=== PATIENT | female | born 1995 | race African-American/Black ===

== ENCOUNTER 2020-12-08 00:05 | Emergency (ER) | payer OTHER, SELFPAY ==
[2020-12-08 00:08] VITALS: BP 128/72; PULSE 74; RESP 18; TEMP 36.1; O2SAT 100
--- NOTE | 2020-12-08 00:21 | ED.UPPEXIN ---
HPI - Extremity Injury (Upper) General Chief Complaint: Extremity Injury, Upper Stated Complaint: swelling for finger nail Time Seen by Provider: 12/08/20 00:11 Source: patient Mode of arrival: ambulatory Limitations: no limitations History of Present Illness HPI narrative: 25-year-old with a history of right middle finger for past few days. Patient's states that she is unable to get the artificial nail out. Was at nails and she was unable to tolerate the pain. complaint: injury to: finger (Right middle finger) Onset (ago): day(s) Other injuries: none Place: home Severity: moderate Relieving factors: none Exacerbating factors: none Related Data Home Medications Medication Instructions Recorded Confirmed No Home Medications 12/08/20 Allergies Allergy/AdvReac Type Severity Reaction Status Date / Time No Known Allergies Allergy Verified 12/08/20 00:10 Review of Systems Review of Systems: All systems reviewed & are unremarkable except as noted in HPI and below Constitutional: Constitutional: Reports no additional constitutional complaints Eyes: Eyes: Reports no additional eye complaints ENT: Reports system reviewed and no additional complaints, except as documented Cardiovascular: Cardiovascular: Reports no additional cardiovascular complaints Respiratory: Respiratory: Reports no additional respiratory complaints Musculoskeletal: Musculoskeletal: Reports as per HPI PMFSH Social History Social History Gender identity (if verbalized by the patient): Female Exam Narrative: Exam Narrative: GENERAL: Well-appearing, well-nourished, and in no acute distress. HEAD: Normocephalic, atraumatic. EYES: PERRLA and EOMI. CHEST: Clear to auscultation. No respiratory distress. HEART: Regular rate and rhythm. No murmur heard. Normal peripheral pulses.s. EXTREMITIES: Normal range of motion. No edema. examination of the right middle finger artificial nail stuck on the middle finger . SKIN: Warm, dry, no rash. NEURO: No focal deficits. Alert and oriented x3. PSYCH: Normal mood and affect. Course Vital Signs Vital signs: Vital Signs Temperature 36.1 C L 12/08/20 00:08 Pulse Rate 74 12/08/20 00:08 Respiratory Rate 18 12/08/20 00:08 Blood Pressure 128/72 12/08/20 00:08 Pulse Oximetry 100 12/08/20 00:08 Temperature 36.1 C L 12/08/20 00:08 Pulse Rate 74 12/08/20 00:08 Respiratory Rate 18 12/08/20 00:08 Blood Pressure 128/72 12/08/20 00:08 Pulse Oximetry 100 12/08/20 00:08 Discharge Plan Discharge Clinical Impression: Finger pain, right Patient Disposition: Home, Self-Care Condition: Stable Instructions: Antibiotic Form Additional Instructions: soak your finger in acetone and slowly remove the nail , take iburofen for pain Prescriptions: No Action No Home Medications RF: 0 Follow-up/Referrals: PHYSICIAN NOT ON STAFF,NONSTAFF [Non-Staff] - Time of Disposition: 00:23
== END 2020-12-08 00:40 | disposition home or self-care (01) ==
LOC: ANHED 00:26
PROVIDERS: Emergency Provider Family Medicine; PCP Internal Medicine Infectious Disease
DX: M79.644 Pain in right finger(s) (principal)
CPT/HCPCS: 99282

== ENCOUNTER 2021-04-28 21:05 | Emergency (ER) | payer OTHER, SELFPAY ==
[2021-04-28 21:08] VITALS: BP 124/57; PULSE 84; RESP 18; TEMP 36.3; O2SAT 97
--- NOTE | 2021-04-28 23:14 | PC.NURSE ---
Pt sitting in wr with her 3 children, all under age of 10. On arrival, staff asked pt if anyone available to care for children while mother in ER - reported no one available to watch her kids.
--- NOTE | 2021-04-28 23:20 | PC.NURSE ---
Pt reports she wants to come back in the am, and wants to have someone available to watch her children. encouraged to stay. apologized for wait time. ambulatory out of ed c steady, even, unassisted gait. a/o x 4.
== END 2021-04-28 23:38 | disposition left against medical advice (07) ==
LOC: ANHED 23:27
PROVIDERS: PCP Internal Medicine Infectious Disease
DX: R10.30 Lower abdominal pain, unspecified (principal)
CPT/HCPCS: 99199

== ENCOUNTER 2022-07-25 10:06 | Emergency (ER) | payer OTHER, SELFPAY ==
[2022-07-25 10:08] VITALS: BP 136/87; PULSE 114; RESP 20; TEMP 39.1; O2SAT 100
[2022-07-25] MEDS: ACETAMINOPHEN 500 MG TABLET 1000 MG PO (10:40)
--- NOTE | 2022-07-25 10:55 | ED.URI ---
HPI - URI/Sore Throat General Chief Complaint: Upper Respiratory Infection Stated Complaint: sob Time Seen by Provider: 07/25/22 10:47 History of Present Illness HPI Narrative: Pt presents with fever, body aches, cough and nasal congetsion for three days. Pt states fever up to 104. Pt says temp comes down with fever meds. Children also sick. Pt denies vomiting. Related Data Allergies Allergy/AdvReac Type Severity Reaction Status Date / Time No Known Allergies Allergy Verified 04/28/21 21:11 Review of Systems Review of Systems: All systems reviewed & are unremarkable except as noted in HPI and below (hpi) PMFSH Social History Social History Gender identity (if verbalized by the patient): Female Exam Const: General: healthy appearing and no acute distress Nutritional Appearance: well nourished Orientation/consciousness: patient oriented x3 Limitations: no limitations HENMT: Mouth: Yes Normal oral and palatal mucosa present Throat: posterior oropharynx normal Eyes: Conjunctivae: conjunctivae normal EOM: EOMs intact bilaterally Neck: Neck: normal visual inspection, no lymphadenopathy and no meningeal signs Resp: Effort & Inspection: normal respiratory effort Auscultation: clear to auscultation bilaterally Cardio: Rate: regular rate Rhythm: regular rhythm GI: GI Palp: Yes Soft to palpation and No Tenderness to palpation present (GI) Auscultation: normal bowel sounds Skin: General skin exam: normal color Rashes: no rashes Neuro: General: patient oriented x3, moves all extremities, no meningeal signs and no focal motor deficits Speech: normal speech Extrem: General: normal to inspection and no clubbing, cyanosis or edema Psych: Mental Status: mental status grossly normal Affect: normal affect Attitude: cooperative Course Vital Signs Vital signs: Vital Signs Temperature 102.4 F H 07/25/22 10:08 Pulse Rate 114 H 07/25/22 10:08 Respiratory Rate 20 07/25/22 10:08 Blood Pressure 136/87 07/25/22 10:08 Pulse Oximetry 100 07/25/22 10:08 Oxygen Delivery Room Air 07/25/22 10:08 Temperature 102.4 F H 07/25/22 10:08 Pulse Rate 114 H 07/25/22 10:08 Respiratory Rate 20 07/25/22 10:08 Blood Pressure 136/87 07/25/22 10:08 Pulse Oximetry 100 07/25/22 10:08 Oxygen Delivery Room Air 07/25/22 10:08 MDM - URI/Sore Throat Differential Diagnosis Differential diagnosis: Likely upper respiratory infection, viral infection, influenza, pharyngitis and other (covid rsv, less likely pneumonia with normal lung exam could be bronchitis) Lab Data Labs: Lab Results 07/25/22 Range/Units 10:26 Influenza A (RT-PCR) Positive (Negative) Influenza B (RT-PCR) Negative (Negative) SARS-CoV-2 RNA (RT-PCR) Negative Discharge Plan Discharge Clinical Impression: Influenza Patient Disposition: Home, Self-Care Condition: Stable Instructions: Antibiotic Form, Influenza (ED) Prescriptions: New benzonatate 200 mg capsule 200 mg PO TID Qty: 10 0RF Follow-up/Referrals: Candida,Raven Neal [Primary Care Provider] -
[2022-07-25 11:34] LABS: Influenza A QL RT-PCR Positive (Negative); Influenza B QL RT-PCR Negative (Negative); SARS-CoV-2 RNA PCR Negative
== END 2022-07-25 13:28 | disposition home or self-care (01) ==
PROVIDERS: Emergency Provider Emergency Medicine; PCP Internal Medicine Infectious Disease
DX: J10.1 Influenza due to other identified influenza virus with other respiratory manifestations (principal); Z20.822 Contact with and (suspected) exposure to COVID-19
CPT/HCPCS: 87636; 99283; A9270

== ENCOUNTER 2022-12-22 12:49 | Emergency (ER) | payer OTHER, SELFPAY ==
--- NOTE | ~2022-12-22 | US_ITS ---
EXAMINATION: US OB <=14 wk fetus w TV, US OB <= 14 wk fetus add gest INDICATION: vaginal bleeding TECHNIQUE: Sonography of the pelvis was performed by transabdominal and transvaginal techniques. COMPARISON: None. RESULT: Uterus: Orientation: Anteverted. 10.8 x 7.1 x 5.9 cm. Myometrium: homogeneous echogenicity. Intraute rine gestational sac: Multiple present. Mean Sac Diameter: cm, corresponding gestational age week da ys. Yolk sac: cm . Embryo: Multiple present. Baby A: [place] rump length: 1.18 cm, corresponding gestational age 7 weeks, 3 days. Gestational heart rate: 152 bpm. Subgestational hematoma: Absent . Baby B (towards the right of the uterus): [place] rump length: 1.06 cm, corresponding gestational age 7 weeks, 1 days. Gestational heart rate: 147 bpm. Subgestational hematoma: Present measuring 1.4 cm . Right ovary: 1.6 x 1.5 x 2.3 cm. Normal sonographic appearance with physiologic follicles. . . Left ovary: 4.6 x 4.5 x 4.9 cm. Normal sonographic appearance with physiologic follicles. . 4.4 cm multilocular cyst with a single thin septum, solid internal component. Pelvis free fluid: None. IMPRESSION: 1. Twin gestation. Both fetuses are viable. Small gestational hematoma adjacent to baby B. 2. Estimated Gestational Age for baby A: 7 weeks, 3 days by crown rump length. Estimated gestational age for baby B: 7 weeks 1 day. ARTEMIO by ultrasound 08/07/2023. 3. 4.4 cm multilocular left ovarian cyst, O-RADS category 3, recommend referral to ultrasound special ist or cold mill supervisor and consider pelvic MRI. Reviewed, dictated and finalized at location K. IMPRESSION: 1. Twin gestation. Both fetuses are viable. Small gestational hematoma adjacent to baby B. 2. Estimated Gestational Age for baby A: 7 weeks, 3 days by crown rump length. Estimated gestational age for baby B: 7 weeks 1 day. ARTEMIO by ultrasound 08/07/2023 . 3. 4.4 cm multilocular left ovarian cyst, O-RADS category 3, recommend referral to strategy specialist or cold mill supervisor and consider pelvic MRI.
[2022-12-22 12:58] VITALS: BP 128/97; PULSE 90; RESP 15; TEMP 37.1; O2SAT 100
[2022-12-22] MEDS: LACTATED RINGERS 1,000 ML 999 ML IV CONT (13:51)
[2022-12-22] MEDS: ONDANSETRON INJ 4 MG/2 ML VIAL IV PUSH (13:51)
[2022-12-22 13:52] LABS: Basophils Absolute Auto 0.1 K/mm3 (0.0-0.1); Basophils Percent Auto 0.6 % (0.2-1.2); Eosinophils Absolute Auto 0.1 K/mm3 (0-0.3); Eosinophils Percent Auto 1.6 % (0-4.4); Hematocrit 36.9 % (37.0-47.0); Immature Granulocyte Absolute 0.04 K/mm3 (0.00-0.031); Immature Granulocyte Percent A 0.5 % (0-0.5); Lymphocytes Absolute Auto 2.16 K/mm3 (0.9-3.2); Lymphocytes Percent Auto 25.9 % (18.3-44.2); Mean Corpuscular HGB Conc 32.5 g/dl (32-36); Mean Corpuscular Hemoglobin 27.6 pg (26-34); Mean Corpuscular Volume 84.8 fl (80-100); Mean Platelet Volume 9.7 fl (7.4-10.4); Monocytes Absolute Auto 0.9 K/mm3 (0.1-0.6); Monocytes Percent Auto 10.3 % (2.6-8.5); Neutrophils Absolute Auto 5.1 K/mm3 (1.3-6.7); Neutrophils Percent Auto 61.1 % (45.5-73.1); Platelet Count Result 293 k/mm3 (150-375); Red Blood Count 4.35 M/mm3 (4.2-5.4); Red Cell Distribution Width 13.9 % (11.5-14.5); White Blood Count 8.3 K/mm3 (4.5-10.0)
[2022-12-22 13:58] LABS: Appearance Urine Cloudy (Clear); Bacteria Urine 2+ /hpf; Bilirubin Urine Negative (Negative); Blood Urine Negative (Negative); Color Urine Yellow (Yellow); Glucose Urine UA Negative (Negative); Ketones Urine Negative (Negative); Leukocyte Esterase Ur Trace LEU/UL (Negative); Nitrate Urine Negative (Negative); Non Pathogenic Casts 0-2; Protein Urine Negative (Negative); RBC Urine 0-2 /hpf (0-2); Specific Grav Ur 1.026 (1.001-1.035); Squamous Epithelial Cell Urine Moderate /hpf (Few); WBC Urine 0-5 /hpf
[2022-12-22 14:01] LABS: Add Urine Microscopic? YES
--- NOTE | 2022-12-22 14:02 | ED.ABDPAIN ---
HPI - Abdominal Pain General Chief Complaint: Abdominal Pain Stated Complaint: abdominal cramping, Time Seen by Provider: 12/22/22 13:31 Source: patient and RN notes reviewed Mode of arrival: ambulatory Limitations: no limitations History of Present Illness HPI narrative: This is a 27 year old female approximately 8 weeks GA by LMP who presents for evaluation of vaginal spotting and abdominal pain. She states her LMP was 10/26/22 and she had positive urine test 2 weeks ago. She has been having issues with nausea and vomiting with this . She states she is unable to tolerate water or food . She came in for evaluation of her due to history of ectopic 4 years ago and she was feeling upper abdominal fullness last night. She reports mild vaginal bleeding intermittent. She denies fever or chills. She has not had her first appointment yet but she is scheduled with OBGYN at [facility] next week. Related Data Allergies Allergy/AdvReac Type Severity Reaction Status Date / Time No Known Allergies Allergy Verified 12/22/22 12:49 Review of Systems Constitutional: Constitutional: Denies weakness Cardiovascular: Cardiovascular: Denies syncope, Denies rapid heart rate, Denies irregular heart rhythm, Denies leg edema and Denies dyspnea Respiratory: Respiratory: Denies chest congestion, Denies hemoptysis, Denies excessive phlegm production and Denies dyspnea Gastrointestinal: Gastrointestinal: Denies abdominal pain, Denies hematochezia, Denies diarrhea, Reports nausea and Reports vomiting Genitourinary: Genitourinary: Reports abnormal vaginal bleeding, Denies hematuria and Denies dysuria Musculoskeletal: Musculoskeletal: Denies joint swelling, Denies loss of height and Denies muscle weakness Neurologic: Denies syncope, Denies focal weakness and Denies weakness PMFSH Past Medical History Medical History (Updated 12/22/22 @ 15:18 by Pippa Ayala MD) Ectopic Surgical History Surgical History (Updated 12/22/22 @ 14:07 by Pippa Ayala MD) H/O section Social History Social History (Updated 12/22/22 @ 14:08 by Pippa Ayala MD) Smoking status: Never smoker Gender identity (if verbalized by the patient): Female Exam Const: General: alert Nutritional Appearance: well nourished and obese Orientation/consciousness: patient oriented x3 HENMT: Head: normal to inspection Mouth: Yes Normal oral and palatal mucosa present, Yes lip normal and Yes moist mucous membranes Eyes: EOM: EOMs intact bilaterally Chest: Chest palpation & inspection: normal inspection of the chest Resp: Effort & Inspection: normal respiratory effort Auscultation: clear to auscultation bilaterally Cardio: Rate: regular rate Rhythm: regular rhythm Heart sounds: no murmurs GI: GI Palp: Yes Soft to palpation, No Tenderness to palpation present (GI), No Guarding due to palpation present (GI) and No Rigid due to palpation Auscultation: normal bowel sounds Skin: General skin exam: normal color Rashes: no rashes Wounds: no wounds Neuro: General: patient oriented x3, moves all extremities and CN's II-XI intact bilaterally Extrem: General: normal to inspection Psych: Mental Status: mental status grossly normal Affect: normal affect Attitude: cooperative Course Reevaluation(s) Reevaluation #1: I have discussed with US shows twin gestations with subchorionic hemorrhage. She states she has appointment with high risk at [facility] next week. Date: 12/22/22 Time: 15:14 Vital Signs Vital signs: Vital Signs Temperature 98.7 F 12/22/22 12:58 Pulse Rate 90 12/22/22 12:58 Respiratory Rate 15 12/22/22 12:58 Blood Pressure 128/97 H 12/22/22 12:58 Pulse Oximetry 100 12/22/22 12:58 Oxygen Delivery Room Air 12/22/22 12:58 Temperature 98.7 F 12/22/22 12:58 Pulse Rate 90 12/22/22 12:58 Respiratory Rate 15 12/22/22 12:58 Blood Pressure 128/97 H 12/22/22 12:58
[2022-12-22 14:04] LABS: Alanine Aminotransferase 20 U/L (6-35); Albumin Level 3.9 g/dL (3.5-5.1); Alkaline Phosphatase 54 U/L (38-126); Anion Gap 7 mmol/L (8-16); Aspartate Amino Transferase 23 U/L (14-36); Bilirubin,Total 0.3 mg/dL (0.2-1.3); Blood Urea Nitrogen 11 mg/dL (7-17); Calcium 8.9 mg/dL (8.4-10.2); Carbon Dioxide 24 mmol/L (22-30); Chloride 104 mmol/L (98-107); Estimated CRCL calculation 135 ml/min; Estimated Glomerular Filt Rate > 60; Glucose 80 mg/dL (65-110); Lipase 42 U/L (23-300); Potassium 3.8 mmol/L (3.4-5.0); Sodium 135 mmol/L (137-145)
== END 2022-12-22 15:28 | disposition home or self-care (01) ==
PROVIDERS: Emergency Provider General Practice; PCP Internal Medicine Infectious Disease
DX: O46.8X1 Other antepartum hemorrhage, first trimester (principal); O21.0 Mild hyperemesis gravidarum; O30.001 Twin pregnancy, unspecified number of placenta and unspecified number of amniotic sacs, first trimester; O99.891 Other specified diseases and conditions complicating pregnancy; D39.12 Neoplasm of uncertain behavior of left ovary; Z3A.01 Less than 8 weeks gestation of pregnancy
CPT/HCPCS: 36415; 76801; 76802; 76817; 80053; 81001; 81025; 83690; 84702; 85025; 85461; 86850; 86900; 86901; 96361; 96374; 99284; J2405; J7120

== ENCOUNTER 2022-12-26 16:29 | Emergency (ER) | payer OTHER, SELFPAY ==
--- NOTE | ~2022-12-26 | US_ITS ---
EXAMINATION: 1. US OB <= 14 wk fetus add gest 2. US OB <= 14 weeks fetus DATE: 12/26/2022 18:38 INDICATION: Vaginal bleeding in . Cramping. TECHNIQUE: Real-time transabdominal pelvic ultrasound was performed. COMPARISON: Ultrasound 12/22/2022 FINDINGS: The uterus measures 9.6 x 6.1 cm. There are 2 intrauterine gestations by a thick membrane. No fracture identified. There is a small subchorionic hematoma. The crown rump length for fet us A measures 1.7 cm, which correlates with an estimated gestational age of 8 weeks and 0 day(s) (+/- ) 5 day(s). heart motion is identified measuring 175 beats per minute (bpm) by M-mode Doppler. The crown rump length for fetus B measures 1.7 cm, which correlates with an estimated gestation al age of 8 weeks and 1 day +/- 5 days. The right ovary is not visualized. The left ovary measures 4. 5 x 4.5 x 5.0 cm. There is a 4.5 cm cyst with single septation in left ovary, likely a follicular cys t. There is no free fluid in the pelvis. IMPRESSION: 1. Living dichorionic, diamniotic twins. 2. Small subchorionic hematoma again seen. Reviewed, dictated and finalized at location E. IMPRESSION: 1. Living dichorionic, diamniotic twins. 2. Small subchorionic hematoma again seen.
[2022-12-26 16:32] VITALS: BP 115/74; PULSE 94; RESP 18; TEMP 36.8; O2SAT 100
[2022-12-26 17:40] LABS: Basophils Percent Auto 0.4 % (0.2-1.2); Eosinophils Absolute Auto 0.1 K/mm3 (0-0.3); Eosinophils Percent Auto 0.7 % (0-4.4); Hematocrit 37.1 % (37.0-47.0); Hemoglobin 11.9 g/dL (12.0-15.0); Immature Granulocyte Absolute 0.05 K/mm3 (0.00-0.031); Immature Granulocyte Percent A 0.7 % (0-0.5); Lymphocytes Absolute Auto 1.26 K/mm3 (0.9-3.2); Mean Corpuscular HGB Conc 32.1 g/dl (32-36); Mean Corpuscular Hemoglobin 27.4 pg (26-34); Mean Corpuscular Volume 85.5 fl (80-100); Mean Platelet Volume 9.2 fl (7.4-10.4); Monocytes Absolute Auto 0.6 K/mm3 (0.1-0.6); Monocytes Percent Auto 8.1 % (2.6-8.5); Neutrophils Absolute Auto 5.4 K/mm3 (1.3-6.7); Neutrophils Percent Auto 73.1 % (45.5-73.1); Platelet Count Result 276 k/mm3 (150-375); Red Blood Count 4.34 M/mm3 (4.2-5.4); Red Cell Distribution Width 13.8 % (11.5-14.5); White Blood Count 7.4 K/mm3 (4.5-10.0)
--- NOTE | 2022-12-26 18:06 | ED.FEMALEGU ---
HPI - Female Genitourinary General Chief complaint: Vaginal Bleeding Stated complaint: 7-8 weeks /vaginal bleeding/cramping Time Seen by Provider: 12/26/22 17:06 Source: patient Mode of arrival: ambulatory Limitations: no limitations History of Present Illness HPI Narrative: This is a 27 yo F who presents to the ED with chief complaint of vaginal spotting and lower abdominal cramping x 1 day. Pt states she had cramping beginning at 0300 and later had some spotting. Denies heavy bleeding. States LMP 10/26/22. She was here 1 week ago for N/V and had an US that showed viable IUP with twin gestation. SHe has Hx of twin gestation in the past. Overall she is A2. 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 She has been given referral to [facility] but ahs not been able to follow up yet. Today she also reports mild nausea that has largely resolved. Denies fevers, chills, discharge, concern for STDs, CP, SOB, back pain, urinary symptoms. Related Data Allergies Allergy/AdvReac Type Severity Reaction Status Date / Time No Known Allergies Allergy Verified 12/26/22 16:31 Review of Systems Review of Systems: CONSTITUTIONAL: Denies fever, chills, or sweats. EYES: Denies visual changes, redness, or discharge. ENT: Denies rhinorrhea, congestion, sore throat, or otalgia. CARDIOVASCULAR: Denies chest pain, palpitations, or edema. RESPIRATORY: Denies cough or dyspnea. GASTROINTESTINAL: Denies abdominal pain, nausea, vomiting, or diarrhea. GENITOURINARY: See HPI SKIN: Denies rash or itching. MUSCULOSKELETAL: Denies back pain, joint pain, or myalgia. NEUROLOGIC: Denies headache, numbness, dizziness, or weakness. PSYCHIATRIC: Denies anxiety or depression. [facility] Past Medical History Medical History (Updated 12/26/22 @ 20:01 by Ok Posada PA-C) Ectopic Surgical History Surgical History (Updated 12/22/22 @ 14:07 by Pippa Ayala MD) H/O section Social History Social History (Updated 12/22/22 @ 14:08 by Pippa Ayala MD) Smoking status: Never smoker Gender identity (if verbalized by the patient): Female Exam Narrative: GENERAL: Well-appearing, well-nourished, and in no acute distress. HEAD: Normocephalic, atraumatic. EYES: PERRLA and EOMI. ENT: Nares clear, no rhinorrhea or epistaxis. Mucous membranes moist. Oropharynx without tonsillar hypertrophy exudate or other lesions. NECK: Supple. No adenopathy or masses. CHEST: No respiratory distress. Clear to auscultation. No wheezes rales or rhonchi HEART: Regular rate and rhythm. No murmur heard. Normal peripheral pulses. ABDOMEN: Soft, nontender, nondistended, normal active bowel sounds. MSK: Normal range of motion. No edema. SKIN: Warm, dry, no rash. NEURO: Alert and oriented x3. No focal deficits. PSYCH: Normal mood and affect. Pelvic exam done with female allergy specialist present: No blood or products of conception visualized Scant white discharge Cervical os closed Course Vital Signs Vital signs: Vital Signs Temperature 98.2 F 12/26/22 16:32 Pulse Rate 94 12/26/22 16:32 Respiratory Rate 18 12/26/22 16:32 Blood Pressure 115/74 12/26/22 16:32 Pulse Oximetry 100 12/26/22 16:32 Oxygen Delivery Room Air 12/26/22 16:32 Temperature 98.2 F 12/26/22 16:32 Pulse Rate 74 12/26/22 19:13 Respiratory Rate 18 12/26/22 19:13 Blood Pressure 117/66 12/26/22 19:13 Pulse Oximetry 97 12/26/22 19:13 Oxygen Delivery Room Air 12/26/22 16:32 MDM - Female Genitourinary MDM Narrative Medical decision making narrative: This is a 27-year-old female who presents to the ED with chief complaint of lower abdominal cramping and vaginal spotting beginning today. She is reportedly 8 weeks . Vitals are stable. Afebrile. Her pain has actually resolved by the time I interview her. Pelvic exam does not reveal an open os or any products of conception. No blood seen on the pelvic exam either.
[2022-12-26 19:13] VITALS: BP 117/66; PULSE 74; RESP 18; O2SAT 97
== END 2022-12-26 20:12 | disposition home or self-care (01) ==
PROVIDERS: Emergency Provider Physician Assistant; PCP Internal Medicine Infectious Disease
DX: O20.0 Threatened abortion (principal); O30.001 Twin pregnancy, unspecified number of placenta and unspecified number of amniotic sacs, first trimester; Z3A.08 8 weeks gestation of pregnancy
CPT/HCPCS: 36415; 76801; 76802; 84702; 85025; 85461; 86850; 86900; 86901; 99284

== ENCOUNTER 2023-12-14 00:22 | Emergency (ER) | payer OTHER, SELFPAY ==
[2023-12-14 00:25] VITALS: BP 119/96; PULSE 84; RESP 20; TEMP 36.4; O2SAT 100
--- NOTE | 2023-12-14 01:08 | ED.EAR ---
HPI - Ear Problem General Chief complaint: Ear Stated complaint: Right ear pain, right hearing loss Time Seen by Provider: 12/14/23 00:39 History of Present Illness HPI Narrative: 28-year-old female presents to the emergency department for right ear pain that started today. Patient states she has been very congested and she blew her nose when she felt a pop and pain in her right ear. States she has been having significantly worsening pain since. She is not taking anything for pain. Denies fever. Denies concern for . Related Data Allergies Allergy/AdvReac Type Severity Reaction Status Date / Time No Known Allergies Allergy Verified 12/14/23 00:27 Review of Systems Review of Systems: CONSTITUTIONAL: Denies fever, chills, or sweats. EYES: Denies visual changes, redness, or discharge. ENT: See HPI CARDIOVASCULAR: Denies chest pain, palpitations, or edema. RESPIRATORY: Denies cough or dyspnea. GASTROINTESTINAL: Denies abdominal pain, nausea, vomiting, or diarrhea. GENITOURINARY: Denies dysuria or hematuria. SKIN: Denies rash or itching. MUSCULOSKELETAL: Denies back pain, joint pain, or myalgia. NEUROLOGIC: Denies headache, numbness, or weakness. PSYCHIATRIC: Denies anxiety or depression. [facility] Past Medical History Medical History Ectopic Surgical History Surgical History H/O section Social History Social History Smoking status: Never smoker Gender identity (if verbalized by the patient): Female Exam Narrative: GENERAL: Well-appearing, well-nourished, and in no acute distress. HEAD: Normocephalic, atraumatic. EYES: PERRLA and EOMI. ENT: Nares clear, no rhinorrhea or epistaxis. Mucous membranes moist. Left TM is verdin nonbulging with normal canal. Right TM erythematous and injected with a dull light reflex and effusion. Canal mildly erythematous. No pain with movement of auricle, no mastoid tenderness. TM is intact and without perforation. NECK: Supple. CHEST: Clear to auscultation. No respiratory distress. HEART: Regular rate and rhythm. No murmur heard. Normal peripheral pulses. ABDOMEN: Soft, nontender, nondistended, normal active bowel sounds. EXTREMITIES: Normal range of motion. No edema. SKIN: Warm, dry, no rash. NEURO: No focal deficits. Alert and oriented x3 Course Vital Signs Vital signs: Vital Signs Temperature 97.5 F L 12/14/23 00:25 Pulse Rate 84 12/14/23 00:25 Respiratory Rate 20 12/14/23 00:25 Blood Pressure 119/96 H 12/14/23 00:25 Pulse Oximetry 100 12/14/23 00:25 Oxygen Delivery Room Air 12/14/23 00:25 Temperature 97.5 F L 12/14/23 00:25 Pulse Rate 84 12/14/23 00:25 Respiratory Rate 20 12/14/23 00:25 Blood Pressure 119/96 H 12/14/23 00:25 Pulse Oximetry 100 12/14/23 00:25 Oxygen Delivery Room Air 12/14/23 00:25 Medical Decision Making [facility] Narrative Medical decision making narrative: 28-year-old female presents to emergency department for right ear pain that started tonight. See HPI for further history. Triage vital stable. Exam is consistent with otitis media. No mastoid tenderness, no pain with movement of auricle. TM appears to be intact without perforation. Will start the patient on Augmentin and provide ENT follow-up. Encouraged ibuprofen Tylenol for pain. Strict ED return precautions discussed. She is agreeable to plan verbalized understanding. Discharged in stable condition. Vital Signs Vital Signs: Vital Signs Temperature 97.5 F L 12/14/23 00:25 Pulse Rate 84 12/14/23 00:25 Respiratory Rate 20 12/14/23 00:25 Blood Pressure 119/96 H 12/14/23 00:25 Pulse Oximetry 100 12/14/23 00:25 Oxygen Delivery Room Air 12/14/23 00:25 Temperature 97.5 F L 12/14/23 00:25 Pulse Rate 84 12/14/23 00:2
[2023-12-14] MEDS: IBUPROFEN 400 MG TABLET 800 MG PO (01:16)
[2023-12-14] MEDS: AMOXICILLIN/CLAVULANATE K 875-125 MG TAB 1 TABLET PO (01:16)
== END 2023-12-14 01:24 | disposition home or self-care (01) ==
PROVIDERS: Emergency Provider Physician Assistant; PCP Internal Medicine Infectious Disease
DX: H66.91 Otitis media, unspecified, right ear (principal)
CPT/HCPCS: 99283; A9270

== ENCOUNTER 2024-05-22 16:51 | Emergency (ER) | payer OTHER, SELFPAY ==
--- NOTE | 2024-05-22 17:11 | PC.NURSE ---
pt declined being seen. pt states she is going to urgent care. pt left in no visible distress.
== END 2024-05-22 17:41 | disposition left against medical advice (07) ==
LOC: ANHED 17:32
PROVIDERS: PCP Internal Medicine Infectious Disease
DX: Z53.21 Procedure and treatment not carried out due to patient leaving prior to being seen by health care provider (principal)
CPT/HCPCS: 99199

== ENCOUNTER 2024-06-19 16:55 | Emergency (ER) | payer OTHER, SELFPAY ==
[2024-06-19 17:00] VITALS: BP 139/86; PULSE 88; RESP 19; TEMP 36.8; O2SAT 100
[2024-06-19 17:38] LABS: Basophils Absolute Auto 0.1 K/mm3 (0.0-0.1); Basophils Percent Auto 0.6 % (0.2-1.2); Eosinophils Absolute Auto 0.1 K/mm3 (0-0.3); Eosinophils Percent Auto 1.6 % (0-4.4); Hematocrit 37.5 % (37.0-47.0); Hemoglobin 11.3 g/dL (12.0-15.0); Immature Granulocyte Absolute 0.02 K/mm3 (0.00-0.031); Immature Granulocyte Percent A 0.2 % (0-0.5); Lymphocytes Absolute Auto 1.56 K/mm3 (0.9-3.2); Lymphocytes Percent Auto 19.4 % (18.3-44.2); Mean Corpuscular HGB Conc 30.1 g/dl (32-36); Mean Corpuscular Hemoglobin 26.1 pg (26-34); Mean Corpuscular Volume 86.6 fl (80-100); Mean Platelet Volume 9.3 fl (7.4-10.4); Monocytes Absolute Auto 0.6 K/mm3 (0.1-0.6); Monocytes Percent Auto 7.5 % (2.6-8.5); Neutrophils Absolute Auto 5.7 K/mm3 (1.3-6.7); Neutrophils Percent Auto 70.7 % (45.5-73.1); Platelet Count Result 477 k/mm3 (150-375); Red Blood Count 4.33 M/mm3 (4.2-5.4); Red Cell Distribution Width 13.2 % (11.5-14.5)
[2024-06-19 17:48] LABS: Alanine Aminotransferase 11 U/L (6-35); Albumin Level 4.2 g/dL (3.5-5.1); Alkaline Phosphatase 75 U/L (38-126); Anion Gap 8 mmol/L (4-12); Aspartate Amino Transferase 24 U/L (14-36); Bilirubin,Total 0.3 mg/dL (0.2-1.3); Blood Urea Nitrogen 10 mg/dL (7-17); Calcium 9.4 mg/dL (8.4-10.2); Carbon Dioxide 29 mmol/L (22-30); Chloride 104 mmol/L (98-107); Estimated CRCL calculation 128 ml/min; Estimated Glomerular Filt Rate > 60; Glucose 95 mg/dL (65-110); Lipase 44 U/L (23-300); Sodium 141 mmol/L (137-145)
[2024-06-19 19:42] LABS: Add Urine Microscopic? YES; Appearance Urine Turbid (Clear); Bacteria Urine Rare /hpf; Bilirubin Urine Negative (Negative); Blood Urine Negative (Negative); Color Urine Yellow (Yellow); Glucose Urine UA Negative (Negative); Ketones Urine Negative (Negative); Leukocyte Esterase Ur Negative LEU/UL (Negative); Nitrate Urine Negative (Negative); Non Pathogenic Casts 0-2; Protein Urine Negative (Negative); RBC Urine 0-2 /hpf (0-2); Specific Grav Ur 1.019 (1.001-1.035); Squamous Epithelial Cell Urine Few /hpf (Few); WBC Urine 0-5 /hpf (0-3)
[2024-06-19 20:02] VITALS: BP 134/102; PULSE 90; RESP 18; O2SAT 99
--- NOTE | 2024-06-19 21:49 | ED.GENADULT ---
HPI - General Adult General Chief complaint: Abdominal Pain Stated complaint: abd pain x2 months Time Seen by Provider: 06/19/24 20:03 History of Present Illness HPI narrative: patient 28-year-old female who presents emergency department chief complaint of epigastric pain. Patient reports he has been having epigastric pain for the last 2 months and reports that she came to the emergency department tonight because been getting worse over the last week the patient reports she has not seen her primary care provider reports is a fullness feeling in the epigastric region. The patient denies fever denies vomiting denies diarrhea. Patient reports she still has her gallbladder still has her appendix. The patient reports she has had a fallopian tube removed and has had C-sections Related Data Allergies Allergy/AdvReac Type Severity Reaction Status Date / Time No Known Allergies Allergy Verified 06/19/24 20:04 Review of Systems Review of Systems: A 10 system review of systems was completed on the patient and is negative except for what is stated in the HPI. Nursing and ancillary documentation was reviewed. PMFSH Past Medical History Medical History Ectopic Surgical History Surgical History H/O section Social History Social History Smoking status: Never smoker Gender identity (if verbalized by the patient): Female Exam Narrative: GENERAL: Well-appearing, well-nourished, and in no acute distress. HEAD: Normocephalic, atraumatic. EYES: PERRLA and EOMI. ENT: Nares clear, no rhinorrhea or epistaxis. Mucous membranes moist. NECK: Supple. CHEST: Clear to auscultation. No respiratory distress. HEART: Regular rate and rhythm. No murmur heard. Normal peripheral pulses. ABDOMEN: Soft, diffuse moderate tenderness, nondistended, normal active bowel sounds. EXTREMITIES: Normal range of motion. No edema. SKIN: Warm, dry, no rash. NEURO: No focal deficits. Alert and oriented x3. PSYCH: Normal mood and affect. Course Vital Signs Vital signs: Vital Signs Temperature 36.8 C 06/19/24 17:00 Pulse Rate 88 06/19/24 17:00 Respiratory Rate 19 11/16/24 17:00 Blood Pressure 139/86 06/19/24 17:00 Pulse Oximetry 100 06/19/24 17:00 Temperature 36.8 C 06/19/24 17:00 Pulse Rate 90 06/19/24 20:02 Respiratory Rate 18 06/19/24 20:02 Blood Pressure 134/102 H 06/19/24 20:02 Pulse Oximetry 99 06/19/24 20:02 Medical Decision Making [facility] Narrative Medical decision making narrative: differential diagnosis includes intra-abdominal infection, diverticulitis, colitis, appendicitis, UTI, pyelonephritis, laboratory studies were obtained on the patient showed CBC with white count of 8.0 hemoglobin was 11.3 electrolytes are within normal limits liver enzymes are normal lipase was normal urinalysis showed no evidence UTI. CT scan of the abdomen pelvis was ordered. The patient decided that she did not want to wait in the emergency department it was informed of risks and benefits and decided to leave against medical advice Vital Signs Vital Signs: Vital Signs Temperature 36.8 C 06/19/24 17:00 Pulse Rate 88 06/19/24 17:00 Respiratory Rate 19 06/19/24 17:00 Blood Pressure 139/86 06/19/24 17:00 Pulse Oximetry 100 06/19/24 17:00 Temperature 36.8 C 06/19/24 17:00 Pulse Rate 90 06/19/24 20:02 Respiratory Rate 18 06/19/24 20:02 Blood Pressure 134/102 H 06/19/24 20:02 Pulse Oximetry 99 06/19/24 20:02 Lab Data 06/19/24 17:27 06/19/24 17:27 Labs: Lab Results 06/19/24 06/19/24 Range/Units 17:27 19:28 WBC 8.0 (4.5-10.0) K/mm3 RBC 4.33 (4.2-5.4) M/mm3 Hgb 11.3 L (12.0-15.0) g/dL Hct 37.5 (37.0-47.0) % MCV 86.6 (80-100) fl MCH 26.1 (26-34) pg MCHC 30.1 L (32-36) g/dl RDW 13.2 (11.5-14.5) % Plt Count 477 H D (150-375) k/mm3 MPV 9.3 (7.4-10.4) fl Immature Gran % (Auto) 0.2 (0-0.5) % Neut % (Auto) 70.7 (45.5-73.1) % Lymph % (Auto) 19.4 (18.3-44.2) % [place] % (Auto) 7.5 (2.6-8.5) % Eos % (Auto) 1.6 (0-4.4) % Baso % (Auto) 0.6 (0.2-1.2) % Lymph # (Auto) 1.56 (0.9-3.2) K/mm3 [place] # (Auto) 0.6 (0.1-0.6) K/mm3 Eos # (Auto) 0.1 (0-0.3) K/mm3 Baso # (Auto) 0.1 (0.0-0.1) K/mm3 Abs Immat Gran (auto) 0.02 (0.00-0.031) K/mm3 Absolute Neuts (auto) 5.7 (1.3-6.7) K/mm3 Absolute Nucleated RBC 0.000 (0.0-0.012) K/mm3 Nucleated RBC % 0.0 (0.0-0.2) % Sodium 141 (137-145) mmol/L Potassium 4.0 (3.4-5.0) mmol/L Chloride 104 (98-107) mmol/L Carbon Dioxide 29 (22-30) mmol/L Anion Gap 8 (4-12) mmol/L BUN 10 (7-17) mg/dL Creatinine 0.70 (0.7-1.0) mg/dL Estim Creat Clear Calc 128 ml/min Estimated GFR > 60 (59 - ) Glucose 95 (65-110) mg/dL Calcium 9.4 (8.4-10.2) mg/dL Total Bilirubin 0.3 (0.2-1.3) mg/dL AST 24 (14-36) U/L ALT 11 (6-35) U/L Alkaline Phosphatase 75 (38-126) U/L Total Protein 8.0 (6.3-8.2) g/dL Albumin 4.2 (3.5-5.1) g/dL Lipase 44 (23-300) U/L Urine Color Yellow (Yellow) Urine Appearance Turbid H (Clear) Urine pH 7.0 (5.0-9.0) Ur Specific [place] 1.019 (1.001-1.035) Urine Protein Negative (Negative) mg/dL Urine Glucose (UA) Negative (Negative) mg/dL Urine Ketones Negative (Negative) mg/dL Ur Blood (Man) Negative (Negative) Urine Nitrate Negative (Negative) Urine Bilirubin Negative (Negative) Urine Urobilinogen 1.0 (<2.0) mg/dL Leukocyte Esterase Rfl Negative (Negative) ANITA/UL Urine RBC 0-2 (0-2) /hpf Urine WBC 0-5 (0-3) /hpf Ur Squamous Epith Cells Few (Few) /hpf Urine Bacteria Rare /hpf Urine Casts 0-2 Discharge Plan Discharge Clinical Impression: Abdominal pain Patient Disposition: Left Against Medical Advice Condition: Stable Instructions: Abdominal Pain (ED) Prescriptions: No Action benzonatate 200 mg capsule 200 mg PO TID Qty: 10 0RF ondansetron 4 mg tablet,disintegrating 4 mg PO Q6H PRN (Reason: nausea and vomiting) Qty: 10 0RF nitrofurantoin monohyd/m-cryst [Macrobid] 100 mg capsule 100 mg PO Q12H 3 Days Qty: 6 0RF Rx Instructions: must administer with a meal/food amoxicillin-pot clavulanate 875-125 mg tablet 1 tablet PO Q12H Qty: 14 0RF Follow-up/Referrals: Gio,Raven Neal [Primary Care Provider] - Time of Disposition: 21:51
[2024-06-21 10:04] LABS: BEDSIDEPREGUCG Negative (Negative)
== END 2024-06-19 21:45 | disposition left against medical advice (07) ==
PROVIDERS: Physician Assistant; Emergency Provider Emergency Medicine; PCP Internal Medicine Infectious Disease
DX: R10.13 Epigastric pain (principal)
CPT/HCPCS: 36415; 80053; 81001; 81025; 83690; 85025; 99283

== ENCOUNTER 2025-05-30 13:57 | Emergency (ER) | payer OTHER, SELFPAY ==
--- OUTSIDE RECORDS SUMMARY | 2023-12-22 05:40 | XMS_ITS ---
Author Organization [facility] Address [address] [place] [address] Care Team Providers Care Chronic Specialist Name Role Phone Teagan Green Primary Care Provider REASON FOR VISIT 4 Month Psych F/U & Med Refill Social History Sex Assigned At : Social History Observation Description Sex Assigned At Female Encounters Encounter Location Date Provider Diagnosis [address] [id number] 12/22/2023 Teagan Green Plan Of Treatment No Information Progress Notes * DEANNAABILIODOB: 4 (29 yo F)Acc No.[id number]:12/22/2023 UNLOCKED PROGRESS NOTE Patient: ABILIO MONTES Provider: ZAFAR Meza, WALL CLE[employer], [employer] :1995 A ge:28 Y S ex:Female Date:12/22/2023 Address:[address] [place] [address] [place] [id number] Subjective: * Chief Complaints: * 1 . 4 Month Psych F/U & Med Refill. * Medical History: Objective: * Vitals: Assessment: Plan: * Treatment: * * Electronic signature of Musa Green , [id number] on 05/30/2025 at 03:40 PM CDT Sign off status: Pending * Provider: Kurt Green, MSN, [employer], [employer] Date: 0 12/22/2023 Generated for Bel pope/Vivek/Suaditting on: 1 03:40 PM CDT
--- NOTE | ~2025-05-30 | US_ITS ---
EXAMINATION: US OB <=14 wk fetus w TV DATE: 05/30/2025 15:59 INDICATION: Bleeding during first trimester of TECHNIQUE: Real-time pelvic ultrasound utilizing both a transvaginal and transabdominal probe was performed. The interpreting radiologist was not present for the study. COMPARISON: None. FINDINGS: The uterus measures 9.7 x 6.4 x 6.4 cm. There is an intrauterine gestational sac. A yolk sac and pole are identified. The crown rump length measures 1.9 cm, which correlates with an estimated gestational age of 8 weeks and 3 days. heart motion is identified measuring 168 beats per minute (bpm) by M-mode Doppler. 11 x 5 mm hypoechoic subchorionic hematoma. Normal cervical length of 3.9 cm. The right ovary measures 3.4 x 3.0 x 3.0 cm. There are couple anechoic cysts in the right ovary the largest measuring 2.4 cm. Vascular flow identified in the right ovary on color Doppler. The left ovary is not visualized. There is no free fluid in the pelvis. IMPRESSION: 1. Single living fetus with heart rate of 168 bpm. 2. Gestational age by ultrasound of weeks day(s) +/- day(s) with ultrasound estimated date of delivery (ARTEMIO) of 01/06/2026. 3. Small subchorionic hematoma. Reviewed, dictated and finalized at location A. IMPRESSION: 1. Single living fetus with heart rate of 168 bpm. 2. Gestational age by ultrasound of weeks day(s) +/- day(s) with ultrasound es timated date of delivery (ARTEMIO) of 01/06/2026. 3. Small subchorionic hematoma.
[2025-05-30 14:56] VITALS: BP 120/82; PULSE 79; RESP 16; TEMP 36.8; O2SAT 100
--- NOTE | 2025-05-30 15:13 | ED_ITS ---
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 -maybe 9 weeks Time Seen by Provider: 05/30/25 15:25 Focused HPI: Currently approx. 9 weeks . w/ LMP was 03/06/25 approx. Has appointment with Oncologist, Dr. Anne, at [facility] tomorrow for hx of Ovarian Cancer. Not currently under any chemo or treatment. She said last night when she wiped once she had dark clots. No abdominal cramping. No current symptoms and no further appearance of blood with wiping. Does endorse heaviness when she urinates and cloudiness when she urinates and increased frequency of urination. Does not take any blood thinners. GENERAL: Well-appearing, well-nourished, and in no acute distress. HEAD: Normocephalic, atraumatic. CHEST: Clear to auscultation. ?No respiratory distress. HEART: Regular rate and rhythm.? NEURO: ?Alert and oriented x3. ABDOMINAL: Non tender to palpation. BS present x4 quads. Patient screened in triage and initial orders placed.? ?Additional care and disposition to be based upon?diagnostic testing and treatment. History of Present Illness HPI Narrative: This is a pleasant 29-year-old female patient with past medical history significant for ovarian cancer not on any chemotherapy and treated by Oncology at [facility], who is a 7 para 3 with last menstrual cycle starting March 06, 2025 approximately. Patient has history of prior tubal pregnancies as well as . She is to the emergency room today with complaints of having white once last evening and had noted a dark blood clot on with paper. No blood in the toilet. She has no further bleeding. Denies any abdominal cramping. Patient reports that her urine is cloudy and feels the when she urinates with increased frequency of urination. She does not take any blood thinners, she denies any other acute complaints or symptoms at this time. Related Data Allergies Allergy/AdvReac Type Severity Reaction Status Date / Time No Known Allergies Allergy Verified 06/19/24 20:04 Review of Systems 2 Review of Systems: All systems reviewed & are unremarkable except as noted in HPI and below PMFSH Past Medical History Medical History Ectopic Surgical History Surgical History H/O section Social History Social History Smoking status: Never smoker Gender identity (if verbalized by the patient): Female Exam 2 Const: General: healthy appearing Nutritional Appearance: obese O rientation/consciousness: patient oriented x3 Limitations: no limitations HENMT: Head: normal to inspection Throat: posterior oropharynx normal Eyes: Conjunctivae: conjunctivae normal Pupils: Equal, round and reactive pupils present Neck: Neck: normal visual inspection and no lymphadenopathy Chest: Chest palpation & inspection: normal inspection of the chest and no tenderness Other: Nontender to palpation Resp: Effort & Inspection: normal respiratory effort Auscultation: clear to auscultation bilaterally Cardio: Rate: regular rate Rhythm: regular rhythm Heart sounds: no murmurs GI: Inspection: non-distended Auscultation: normal bowel sounds Other: Nontender to palpation Back/Spine/Pelvis: Back: no CVA tenderness Skin: General skin exam: normal color Rashes: no rashes Wounds: no wounds Neuro: General: patient oriented x3, moves all extremities, no meningeal signs, no focal motor deficits and CN's II-XI intact bilaterally Speech: n ormal speech Gait exam (Neuro): Normal gait present Extrem: Other: Freely and equally moves all extremities well without deficit Psych: Mental Status: mental status grossly normal Affect: normal affect Course Course Emergency Course: Differential diagnosis includes but not limited to urinary tract infection, threatened miscarriage Patient's vital signs are reviewed and are normal Workup initiated with labs and imaging. Labs are unremarkable. Patient's vital signs are stable. Ultrasound showing a right ovarian cyst with a small subchorionic hematoma and a single fetus with a heart rate of 168 and estimated due date of January 06, 2006. Hemoglobin stable. No concern for acute threatened at this time. Patient does have an appointment tomorrow with her oncologist. She is advised to keep that appointment and follow up with them for referral to maternal medicine. Patient discharged at this time in stable condition. Vital Signs Vital signs: Vital Signs Temperature 98.3 F 05/30/25 14:56 Pulse Rate 79 05/30/25 14:56 Respiratory Rate 16 05/30/25 14:56 Blood Pressure 120/82 05/30/25 14:56 Pulse Oximetry 100 05/30/25 14:56 Oxygen Delivery Room Air 05/30/25 14:56 Temperature 98.3 F 05/30/25 14:56 Pulse Rate 78 05/30/25 17:07 Respiratory Rate 14 05/30/25 17:07 Blood Pressure 118/78 05/30/25 17:07 Pulse Oximetry 100 05/30/25 17:07 Oxygen Delivery Room Air 05/30/25 14:56 MDM - OB/Uterine Contractions MDM Narrative Medical decision making narrative: See ED course Lab Data 05/30/25 16:27 05/30/25 16:27 Labs: Lab Results 05/30/25 05/30/25 Range/Units 16:15 16:27 WBC 5.9 (4.5-10.0) K/mm3 RBC 3.87 L (4.2-5.4) M/mm3 Hgb 10.8 L (12.0-15.0) g/dL Hct 33.8 L (37.0-47.0) % MCV 87.3 (80-100) fl MCH 27.9 (26-34) pg MCHC 32.0 (32-36) g/dl RDW 14.2 (11.5-14.5) % Plt Count 259 (150-375) k/mm3 MPV 9.0 (7.4-10.4) fl Immature Gran % (Auto) 0.2 (0-0.5) % Neut % (Auto) 59.1 (45.5-73.1) % Lymph % (Auto) 30.5 (18.3-44.2) % [place] % (Auto) 9.2 H (2.6-8.5) % Eos % (Auto) 0.5 (0-4.4) % Baso % (Auto) 0.5 (0.2-1.2) % Lymph # (Auto) 1.79 (0.9-3.2) K/mm3 [place] # (Auto) 0.5 (0.1-0.6) K/mm3 Eos # (Auto) 0.0 (0-0.3) K/mm3 Baso # (Auto) 0.0 (0.0-0.1) K/mm3 Abs Immat Gran (auto) 0.01 (0.00-0.031) K/mm3 Absolute Neuts (auto) 3.5 (1.3-6.7) K/mm3 Absolute Nucleated RBC 0.000 (0.0-0.012) K/mm3 Nucleated RBC % 0.0 (0.0-0.2) % APTT 26.3 (22.3-36.8) Seconds Sodium 131 L (137-145) mmol/L Potassium 3.8 (3.4-5.0) mmol/L Chloride 104 (98-107) mmol/L Carbon Dioxide 22 (22-30) mmol/L Anion Gap 5 (4-12) mmol/L BUN 14 (7-17) mg/dL Creatinine 0.53 L (0.7-1.0) mg/dL Estim Creat Clear Calc 157 ml/min Estimated GFR > 60 (59 - ) Glucose 85 (65-110) mg/dL Calcium 9.1 (8.4-10.2) mg/dL Total Bilirubin 0.1 L (0.2-1.3) mg/dL AST 20 (14-36) U/L ALT 12 (6-35) U/L Alkaline Phosphatase 61 (38-126) U/L Total Protein 7.1 (6.3-8.2) g/dL Albumin 4.0 (3.5-5.1) g/dL Beta HCG, Quant Pending Urine Color Yellow (Yellow) Urine Appearance Cloudy H (Clear) Urine pH 6.0 (5.0-9.0) Ur Specific [place] 1.022 (1.001-1.035) Urine Protein Negative (Negative) mg/dL Urine Glucose (UA) Negative (Negative) mg/dL Urine Ketones Negative (Negative) mg/dL Ur Blood (Man) Non-hemolyzed trace H (Negative) Urine Nitrate Negative (Negative) Urine Bilirubin Negative (Negative) Urine Urobilinogen 0.2 (<2.0) mg/dL Leukocyte Esterase Rfl Negative (Negative) ANITA/UL Urine RBC 0-2 (0-2) /hpf Urine WBC 0-5 (0-3) /hpf Ur Squamous Epith Cells None seen (Few) /hpf Urine Bacteria Rare /hpf Urine Casts 0-2 Imaging Data Radiologist's impression: ITS Impressions Obstetrics Ultrasound 05/30/25 16:01 IMPRESSION: 1. Single living fetus with heart rate of 168 bpm. 2. Gestational age by ultrasound of weeks day(s) +/- day(s) with ultrasound estimated date of delivery (ARTEMIO) of 01/06/2026. 3. Small subchorionic hematoma. Discharge Plan Discharge Clinical Impression: Confirmed intrauterine on ultrasound, Vaginal bleeding before 22 weeks gestation Patient Disposition: Home Condition: Stable Instructions: Abnormal (Dysfunctional) Uterine Bleeding (ED) Additional Instructions: Thank you for allowing us to evaluate you in the emergency room. Your labs and imaging were performed and you do not appear to be having an acute miscarriage at this time. It is very important to keep her upcoming appointment with oncology tomorrow for referral to maternal medicine for high risk . If any new or worsening symptoms or return of vaginal bleeding return to the emergency room immediately. Patient Language: Senegalese Prescriptions: No Action benzonatate 200 mg capsule 200 mg PO TID Qty: 10 0RF ondansetron 4 mg tablet,disintegrating 4 mg PO Q6H PRN (Reason: nausea and vomiting) Qty: 10 0RF nitrofurantoin monohyd/m-cryst [Macrobid] 100 mg capsule 100 mg PO Q12H 3 Days Qty: 6 0RF Rx Instructions: must administer with a meal/food amoxicillin-pot clavulanate 875-125 mg tablet 1 tablet PO Q12H Qty: 14 0RF Follow-up/Referrals: Gio,Raven Neal [Primary Care Provider] Time of Disposition: 17:33
--- OUTSIDE RECORDS SUMMARY | 2025-05-30 15:40 | XMS_ITS | Patient Health Record ---
[facility] Organization [facility] Address [address] [place] [address] Care Team Providers Care Cloak Room Attendant Name Role Phone Teagan Green Primary Care Provider Allergies No Known Allergies Reason For Referral No Information Medications Medication SIG (Take, Route, Frequency, Duration) Notes Start Date End Date Status hydrOXYzine HCl 25 MG 1 tablet as needed Orally every 8 hrs; Duration: 30 days Active metroNIDAZOLE 500 MG Oral; Duration: 7 Days Active Vraylar 1.5 MG 1 capsule Orally ONC E, EVERY OTHER DAY; Duration: 30 days 08/26/2023 Not-Taking Doxycycline Hyclate 100 MG Oral; Duratio n: 10 Days Active Strattera 25 MG 1 capsule Orally Onc e a day; Duration: 30 days Active buPROPion HCl ER (XL) 300 MG 1 tablet in the morning Orally Once a day; Duration: 30 days Active Social History Tobacco Use: Social History Observation Description Date Details (start date - stop date) Never Smoker NA - NA Sex Assigned At : Social History Observation Description Sex Assigned At Female PRAPARE Question Answer Notes Date Completed/Updated: 1995 What is your current housing situation? I have h ousing Are you worried about losing your housing? Yes What is the highest level of school that you have finished? 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 Check all that apply I do not have problems meeting my needs Has lack of transportation k ept you from medical appointments, meetings, work or from getting things needed for daily living? No How often do you see or talk to people that you care about and feel close to? (For example: talking to friends on the phone, visiting friends or family, going to gnosticism or club meetings) More than 5 times a week How stressed are you? Stress is when someone feels tense, nervous, anxious, or can\t sleep at night because their mind is troubled Quite a bit In the past year have you sp ent more than 2 nights in a row in a [place], [place], half-way center, or juvenile correctional facility? No Do you feel physically and e motionally safe where you currently live? Yes In the past year, have you b een afraid of your partner or ex-partner? No PRAPARE Score: 7 Enabling Services Provided? 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 Encounters Encounter Location Date Provider Diagnosis [address] [id number] 09/27/2024 Teagan Green Plan Of Treatment No Information Insurance Providers Payer Name Payer Address Payer Phone Subscriber Number Group Number Insured Name Patient Relationship to Insured Coverage Start Date Coverage End Date StatSheet [address] [place] [phone] [id number] ABILIO DON Self - patient is the insured 2 [employer]uback [address] [place] [phone] [id number] ABILIO DON Self - patient is the insured 2 Medical (General) History Medical History History ICD Code Anxiety and depression initial diagnosis at 11yo Surgical History Surgery Date(Month/Year) Hospitalization History Reason Date(Month/Year)
--- OUTSIDE RECORDS SUMMARY | 2025-05-30 15:40 | XMS_ITS ---
Author Organization [facility] Address [address] [place] [address] Care Team Providers Care Hat Block Bench Hand Name Role Phone Unknown, Notinfile Primary Care Provider Unavail able Active Problems Patient Care Coordination No te Formatting of this note migh t be different from the original. 29 y.o. 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: resection of liver dz w/ HPB, path: mature teratoma/growing teratoma syndrome Tumor boards: q3mo surveillance with CT C/A/P + CA-125 Plan 05.18.25: -q3 month surveillance -Needs CT now and prior to return visit in 3 months -q3 month Surveillance w/ CT for 1st year Problem Noted Date Diagnosed Date HROB: 05/30/2025 Overview (05/30/2025): 1st Trimester: [] Dating Criteria: 1T [] Labs: Rh+, Ab neg, {Blank single:::Rubella Non- Immune,Rubella Eq,Rubella Immune}, {Blank single:::HIV+,HIV-}, {Blank single:::HepB+,HepB-}, {Blank single:::RPR NR} [] Hgb electrophoresis: {Blank single:::AA,SS,Not Indicated} [] GC/CT: {Blank single:::neg/neg} [] UCx: collected 05/31 [] UDS: n/a [] Pap: last [] Genetic Screening: to discuss [] CF/SMA carrier screening: to discuss [] PNBHS referral: {Blank single:77865::Not indicated} [] ASA at 12 weeks: ordered 05/31 [] Early 1h GTT (if BMI>30): 2nd Trimester: [] Anatomy ultrasound: [] MSAFP (15-18w) [] Placenta Location: [] echo (if DM, monochorionic) [] 1h GTT: [] CBC: [] Flu Shot (Sep-Jul) [] Tdap (27-36wks) [] Rhogam (if Rh neg) 3rd Trimester: [] CBC/HIV/RPR [] GBS [] GC/CT Counseling [] Method of delivery [] Method of contraception [] Method of feeding [] Exchange Clerk [] Car seat discussed [] PP Depression Counseling [] Attending visits (/4) Chemotherapy-induced neutropenia 11/05/2024 Sepsis 09/11/2024 Ovary cancer, left 08/13/2024 Immature teratoma 07/30/2024 Overview (05/18/2025): - Admitted to 5900 w/ abdominal pain, CT w/ large cystic mass in the pelvis of 11.3 cm x 16.2 cm x 22.1 cm suspicious for malignancy - 07/13/24: ExLap, LSO, pelvic washings w/ intraoperative rupture - Surgical pathology notable for 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 Counseled on pathology and follow up plan including risks/benefits of recommended chemotherapy course. All questions invited and answered. - 09/24: Seen for prechemo visit, doing well. PFTs scheduled for this afternoon. - 09/28-09/29/24: Admission for nausea and vomiting - s/p 3C BEP - 12/08/24: CT with 4x5cm hepatic lesion at dome of liver and new 1.7cm lesion at liver periphery - 02/2025: EL, resection of hepatic lesion with HPB. Path path: mature teratoma/growing teratoma syndrome - 05/18/2025: UPT positive. Plan: - Given benign pathology of liver lesion, there is no oncological contra indication to continuing - RTC for CT C/A/P following resolution of Acute postoperative abdominal pain 07/15/2024 Current Treatment and Therapy Plans IV Maintenance Therapy Plan* Plan Start Date:08/26/2024 Plan Provider:Magalie Layne MD Linked Problems Ovary cancer, left (HCC) Treatment Medications No medications scheduled. Past Treatment and Therapy Plans Oncology Chemotherapy Treatment Plan Name Start Date Discontinue Date Treatment Medications Discontinue Reason Plan Provider Cycles BEP 5 Day (Bleomycin / Etoposide / CISplatin) 21 Day Cycles - Ovarian Malignant Germ Cell Tumor 5 11/29/2024 bleomycin (BLENOXANE)bleom ycin (BLEOCIN) IVPBCISplatin (PLATINOL) IVPB in 250 mLetoposide (VEPESID) IVPB in 750 mL Therapy Complete Magalie Layne MD 3 of 3 cycles started Lifetime Dose Tracking * Chemical Lifetime Dose Automatic Entry Manual Entr y bleomycin 180 Units 180 Units 0 Units Fluoro Time 0.2 minutes 0.2 minutes 0 minutes etoposide 1,391.023 mg/m2 (3,0 80 mg) 1,391.023 mg/m2 (3,080 mg) 0 mg/m2 (0 mg) Air kerma at the reference point (Ka,r) 1 mGy 1 mGy 0 mGy DLP 2,756 mGycm 2,756 mGycm 0 mGycm Resolved Problems Problem Noted Date Diagnosed Date Resolved Date Teratoma of ovary 01/12/2025 05/30/2025 Nausea & vomiting 09/28/2024 02/25/2025 Neutropenic fever 09/11/2024 05/30/2025 Ileus, postoperative 07/19/2024 025 Adnexal mass 07/12/2024 05/30/2025
--- OUTSIDE RECORDS SUMMARY | 2025-05-30 15:40 | XMS_ITS | Encounter Summary ---
Author Organization [facility] Healthcare Address [address] [place] [address] Care Team Providers Care Amusement Or Recreation Card Checker Name Role Phone Unknown, Notinfile Primary Care Provider Unavail able Unknown, Notinfile Primary Care Provider Unavail able Encounter Details Date Type Department Care Team (Late st Contact Info) Description 08/12/2024 Telephone [facility] Radiology [address] [place] [address] Rain Vallecillo RN Social History Tobacco Use Types Packs/Day Years Used Date Smoking Tobacco: Never Smokeless Tobacco: Never AUDIT-C Answer Date Recorded Q1: How often do you have a drink containing alc ohol? 2-4 times a month 08/13/2024 Q2: How many drinks containi ng alcohol do you have on a typical day when you are drinking? 1 or 2 08/13/2024 Q3: How often do you have si x or more drinks on one occasion? Never 08/13/2024 Personal Safety Answer Date Recorded Have you ever been in or are you currently in a harmful physical or emotional relationship or is someone making you feel afraid or unsafe? Denies 08/13/2024 Comments No Sex and Gender Information Value Date Recorded Sex Assigned at Not on file Legal Sex Female 7:45 PM ROLL TUBE SETTER Gender Identity Not on file Sexual Orientation Not on file documented as of this encounter Functional Status * AUDIT-C Score Answer Date of Assessment Author 2 08/13/2024 12:27 PM ROLL TUBE SETTER Le, Lill charity, RN * Question Answer Date of Assessment Author Q1: How often do you have a drink containing alcohol? 2-4 times a month 08/13/2024 12:27 PM Frank Arredondo RN Q2: How many drinks containing alcohol do you have on a typical day when you are drinking? 1 or 2 08/13/2024 12:27 PM Latonya Arredondo RN Q3: How often do you have six or more drinks on one occasion? Never 08/13/2024 12:27 PM Latonya Arredondo RN documented as of this encounter Plan of Treatment Not on file documented as of this encounter Visit Diagnoses Not on filedocumented in this encounter Additional Health Concerns Infection Onset Date Last Indicated Resolved Time COVID: Suspected 09/11/2024 09/11/2024 09/11/2024 1:27 AM ROLL TUBE SETTER COVID19 09/11/2024 09/11/2024 09/23/2024 3:05 AM ROLL TUBE SETTER COVID: Recovered Comment:Added based on recent COVID infection. 09/23/2024 09/23/2024 12/22/2024 7:26 PM C DT COVID: Suspected 10/21/2024 10/21/2024 10/21/2024 2:44 PM CDT COVID: Suspected 12/23/2024 12/23/2024 12/23/2024 8:00 PM CDT Rhino/Enterovirus 12/23/2024 12/23/2024 12/30/2024 7:26 PM CDT documented as of this encounter Care Teams Amusement Or Recreation Card Checker Relationship Specialty Start Date End Date Unknown, Notinfile PCP - General 07/16/24 12/22/24 Unknown, Notinfile PCP - General 12/23/24 documented as of this encounter
--- OUTSIDE RECORDS SUMMARY | 2025-05-30 15:40 | XMS_ITS | Clinical Summary ---
Author Organization [facility] Address [address] [place] [address] Care Team Providers Care Vat House Laborer Name Role Phone Unknown, Notinfile Primary Care Provider Unavail able Allergies No known active allergies Medications buPROPion XL (WELLBUTRIN XL) 150 mg 24 hr tabletIndications :Attention-Defici t Hyperactivity Disorder Take 1 tablet (150 mg total) by mouth every morning Active hydrOXYzine (ATARAX) 25 mg tabletIndications :anxiety Take 1 tablet (25 mg total) by mouth every 8 (eight) hours as needed for anxiety Active acetaminophen (TYLENOL) 500 mg tabletIndications :Dysgerminoma of left ovary (HCC),Bone pain Take 500 mg-1000 mg (1 tablet-2 tablets) by mouth every 4 hours as needed for bone pain X 24 hours after getting Neupogen injection. After that, take 500 mg-1000 mg (1 tablet-2 tablets) by mouth 3-4 times a day as needed for bone pain. 60 tablet 1 09/13/19 25 Active Additional Information Patient taking differently: 500 mg oral Every 4 hours PRN, pain, (No instructions reported), Indications: Pain, Informant: Self, Reported on 02/23/2025 calcium carbonate-vitamin D3 (CALTRATE 600 + D) 1500 mg (600 mg elemental) -400 units per tabletIndications :Hypocalcemia Prevention,Preven tion of Vitamin D Deficiency Take 1 tablet by mouth chicken and fish butcher before breakfast Active metroNIDAZOLE (METROGEL) 0.75 % (37.5mg/5 gram) vaginal gelIndications:Ba cterial Vaginosis Insert 1 Applicatorful into the vagina daily as needed (when pH balance is off) Active UNABLE TO FINDIndications:S upplement Take 1 each by mouth chicken and fish butcher before breakfast Med Name: Dianelys Edwards Active UNABLE TO FINDIndications:S upplement Take 1 each by mouth chicken and fish butcher before breakfast Med Name: Soursup Active milk thistle 500 mg capsuleIndication s:Supplement Take 1 capsule by mouth chicken and fish butcher before breakfast Active turmeric root extract 500 mg capsuleIndication s:Supplement Take 1 capsule by mouth chicken and fish butcher before breakfast Active UNABLE TO FINDIndications:S upplement Take 1 each by mouth chicken and fish butcher before breakfast Med Name: Black Seed Oil Active UNABLE TO FINDIndications:S upplement Take 1 each by mouth daily before breakfast Med Name: Dandelion Root Active UNABLE TO FINDIndications:S upplement Take 1 each by mouth chicken and fish butcher before breakfast Med Name: Artichoke [place] Active senna-docusate (PERICOLACE) 8.6-50 mg Take 1 tablet by mouth daily 30 tablet 02/11/20 25 Active oxyCODONE (ROXICODONE) 5 mg immediate release tabletIndications :Pain Take 1-2 tablets (5-10 mg total) by mouth every 4 (four) hours as needed for pain 30 tablet 02/11/20 25 Active methocarbamoL (ROBAXIN) 500 mg tablet Take 2 tablets (1,000 mg total) by mouth 2 (two) times a day as needed for muscle spasms 20 tablet 02/11/20 25 Active vitamin ferrous fumarate-folic () 28 mg iron- 800 mcg tablet Take 1 tablet by mouth daily 30 tablet 11 05/18/20 25 026 Active ibuprofen (ADVIL,MOTRIN) 600 mg tablet Take 1 tablet (600 mg total) by mouth every 6 (six) hours 180 tablet 09/13/19 25 025 Discontin ued(Patie nt Reported) Active Problems Patient Care Coordination No te Formatting of this note migh t be different from the original. 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 [...] screening: to discuss [] PNBHS referral: {Blank single:::Not indicated} [] ASA at 12 weeks: ordered [...] of contraception [] Method of feeding [] Food Cart Attendant [] Car seat discussed [] PP Depression [...] resolution of Acute postoperative abdominal pain 07/15/2024 Resolved Problems Problem Noted Date Diagnosed Date Resolved Date Teratoma of ovary 01/12/2025 05/30/2025 Nausea & vomiting 09/28/2024 02/25/2025 Neutropenic fever 09/11/2024 05/30/2025 Ileus, postoperative 07/19/2024 025 Adnexal mass 07/12/2024 05/30/2025 Encounters Date Type Department Care Team Description 05/19/2025 Documentation [facility] [address] [place] [address] 3rd Floor [address] [place] [id number] Amber Baker RN 05/18/2025 3:50 PM CDT - 05/18/2025 11:59 PM CDT Hospital Encounter [address] [address] with uncertain viability, single or unspecified fetus Discharge Disposition: Discharge to home or self care 05/18/2025 1:00 PM CDT Office Visit [facility] [address] [place] [id number] Teratoma of ovary, unspecified laterality (Primary Dx); with uncertain viability, single or unspecified fetus from Last 3 Months Surgical History Surgery Date Site/Laterality Comments SECTION 08/04/2016 - 08/03/2017 x 2 SKIN GRAFT 3rd degree steele to torso FRACTURE SURGERY PORT PLACEMENT CHEST >5 YEARS 08/13/2024 N/A Medical History Medical History Date Comments Nausea & vomiting 09/28/2024 Awareness under anesthesia durin g , felt incision- only with epidurals Ileus, postoperative (HCC) 07/19/2024 Family History Medical History Relation Name Comments Anesthesia problems Neg Hx Relation Name Status Comments Paternal Grandmother Social History Tobacco Use Types Packs/Day Years Used Date Smoking Tobacco: Never Smokeless Tobacco: Never Tobacco Cessation:Counseling Given: Not Answered [facility] Utilities Answer Date Recorded In the past 12 months has th e electric, gas, oil, or water company threatened to shut off services in your home? Yes 02/08/2025 Social Connection and Isolation Panel Answer Date Recorded In a typical week, how many times do you talk on the phone with family, friends, or neighbors? More than three times a week 02/08/2025 How often do you get togethe r with friends or relatives? More than three times a week 02/08/2025 How often do you attend [facility] or baptism services? More than 4 times per year 02/08/2025 Do you belong to any clubs o r organizations such as baptist groups, unions, fraternal or athletic groups, or school groups? No 02/08/2025 How often do you attend meet ings of the clubs or organizations you belong to? Never 02/08/2025 Are you , , di vorced, , never , or living with a partner? Never 02/08/2025 AUDIT-C Answer Date Recorded Q1: How often do you have a drink containing alcohol? Never 02/07/2025 Q2: How many drinks containi ng alcohol do you have on a typical day when you are drinking? Patient does not drink Q3: How often do you have si x or more drinks on one occasion? Never 02/07/2025 Overall Financial Resource Strain (CARDIA) Answe r Date Recorded How hard is it for you to pa y for the very basics like food, housing, medical care, and heating? Somewhat hard 02/08/2025 PHQ-2 Answer Date Recorded PHQ-2 Total Score 0 02/08/2025 Hunger Vital Sign Answer Date Recorded Within the past 12 months, y ou worried that your food would run out before you got the money to buy more. Never true 02/09/20 25 Within the past 12 months, t he food you bought just didn't last and you didn't have money to get more. Never true 02/08/2025 PRAPARE - Transportation Answer Date Re corded In the past 12 months, has l ack of transportation kept you from medical appointments or from getting medications? No 03/2025 In the past 12 months, has l ack of transportation kept you from meetings, work, or from getting things needed for daily living? No 02/08/2025 Housing Stability Vital Sign Answer Jose F e Recorded In the last 12 months, was t here a time when you were not able to pay the mortgage or rent on time? No 02/08/2025 In the past 12 months, how m any times have you moved where you were living? 0 02/08/2025 At any time in the past 12 m [facility], were you homeless or living in a nursing home (including now)? No 02/08/2025 Personal Safety Answer Date Recorded Have you ever been in or are you currently in a harmful physical or emotional relationship or is someone making you feel afraid or unsafe? 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 Gender Identity Not on file Sexual Orientation Not on file Obstetrics History Last Filed Vital Signs Vital Sign Reading Time Taken Comments Blood Pressure 133/50 05/18/2025 1:49 PM CDT Pulse 87 05/18/2025 1:49 PM CDT Temperature 36.7 C (98 F) 05/18/2025 1:49 PM CDT Respiratory Rate 16 02/11/2025 7:34 AM CDT Oxygen Saturation 100% 05/18/2025 1:49 PM CDT Inhaled Oxygen Concentration - - Weight 94.4 kg (208 lb 1.6 oz) 05/18/2025 1:49 P M CDT Height 170.2 cm (5' 7) 02/23/2025 9:18 AM CDT Body Mass Index 32.59 02/23/2025 9:18 AM CDT Plan of Treatment Health Maintenance Due Date Last Done Comments Cervical Cancer Screening 1993 Hepatitis C Screening 1993 Regular Well Visit/Exam 18-64 2011 Pneumococcal vaccine <65 (1 of 2 - PCV) 2012 Zoster Vaccine (1 of 2) 2012 HPV Vaccines (2 - Risk 3-dos e series) 10/05/2019 09/07/2019 Covid-19 Vaccine (2 - Pfizer risk series) 03/29/2021 03/08/2021 DTaP/Tdap/Td Vaccine (8 - Td or Tdap) 01/15/2024 01/14/2014, 04/20/2010, 05/06/2008, Additional history exists Influenza Vaccine (#1) 2025 Depression Screening 01/31/2026 01/31/2025 Hepatitis B Screening Completed 08/06/1999 , 02/12/1999, 04/26/1998, Additional history exists Varicella Vaccines Completed 05/06/2008, 01/08/2002 Medical Devices Implanted Type Area Button Breaker Device Identifier Shelf Expiration Date Model / Serial / Lot [employer] Xcela Power Port 8fr [id number] - [id number] Implanted:Qty: 1 on 08/13/2024 at [facility] [employer] 01/31/2029 [id number] / / [id number] Procedures Procedure Name Priority Date/Time Associated Diagnosis Comments N. GONORRHOEAE/C. TRACHOMATIS AMPLIFICATION Routine 05/18/2025 4:29 PM CDT with uncertain viability, single or unspecified fetus TRICHOMONAS VAGINALIS PCR Routine 05/18/2025 4:29 PM CDT with uncertain viability, single or unspecified fetus POCT HCG, URINE Routine 05/18/2025 2:35 PM CDT with uncertain viability, single or unspecified fetus from Last 3 Months Results * N. gonorrhoeae/C. trachomatis Amplification Vaginal (05/18/2025 4:29 PM CDT) C. trachomatis Not Detected [facility] N. gonorrhoeae Not Detected [facility] Comment: Interpretive Data This assay detects Chlamydia trachomatis and Neisseria gonorrhoeae by nucleic acid amplification testing (NAAT). This assay has been cleared by the [place] Food and Drug administration. The performance characteristics of this test have been verified by the [facility] Molecular Infectious Disease laboratory. The performance characteristics of this test have not been evaluated in individuals less than 14 years of age. Current Interpretive Data was last revised on 2023. Vaginal (None) 05/18/2025 4: 29 PM CDT 05/18/2025 6:08 PM CDT Birgit Almanzar MD LAB MICROBIOLOGY - GENERA L ORDERABLES Final Result Performing Organization Address [facility] Co de Phone Number [facility] [place] [address] [facility] * Trichomonas vaginalis PCR Vaginal (05/18/2025 4:29 PM CDT) Trichomonas DNA Not Detected [facility] Comment: Interpretive Data This assay detects Trichomonas vaginalis by nucleic acid amplification testing (NAAT). This assay has been cleared by the [place] Food and Drug administration. The performance characteristics of this test have been verified by the [facility] Molecular Infectious Disease laboratory. The performance of this test has not been evaluated in individuals less than 18 years of age. Current Interpretive Data was last revised on 2023. Vaginal 05/18/2025 4:29 PM CDT 05/18/2025 6:08 PM CDT us Birgit Almanzar MD LAB MICROBIOLOGY - GENERA L ORDERABLES Final Result Performing Organization Address City/[facility] [place] [address] [facility] * (ABNORMAL) POCT hCG, urine (05/18/2025 2:35 PM CDT) HCG, ur, POC Positive(A) Negative Lot Number [id number] QC Backgroud Clear Acceptable QC Control Line Acceptable Urine 05/18/2025 2:35 PM CDT Birgit Almanzar MD POINT OF CARE TEST ORDERA BLES Final Result from Last 3 Months Insurance Advance Directives For more information, please contact: [phone] * Full Code (Latest Code Status on File) Date Activated Date Inactivated Comments 02/07/2025 12:37 PM 02/11/2025 4:29 PM * Full Code Date Activated Date Inactivated Comments 09/28/2024 2:32 PM 09/30/2024 3:02 AM * Full Code Date Activated Date Inactivated Comments 09/11/2024 6:25 AM 09/13/2024 6:15 PM * Full Code Date Activated Date Inactivated Comments 08/13/2024 12:24 PM 08/14/2024 4:59 AM * Full Code Date Activated Date Inactivated Comments 07/19/2024 4:59 PM 07/20/2024 9:21 PM Care Teams Vat House Laborer Relationship Specialty Start Date End Date Unknown, Notinfile PCP - General 12/23/24
[2025-05-30 16:25] LABS: Add Urine Microscopic? YES; Appearance Urine Cloudy (Clear); Glucose Urine UA Negative (Negative); Leukocyte Esterase Ur Negative LEU/UL (Negative); Nitrate Urine Negative (Negative); Non Pathogenic Casts 0-2; Specific Grav Ur 1.022 (1.001-1.035)
[2025-05-30 16:39] LABS: Hematocrit 33.8 % (37.0-47.0); Hemoglobin 10.8 g/dL (12.0-15.0); Immature Granulocyte Percent A 0.2 % (0-0.5); Lymphocytes Absolute Auto 1.79 K/mm3 (0.9-3.2); Mean Corpuscular HGB Conc 32.0 g/dl (32-36); Mean Corpuscular Hemoglobin 27.9 pg (26-34); Mean Corpuscular Volume 87.3 fl (80-100); Nucleated Red Blood Cells Absolute Auto 0.000 K/mm3 (0.0-0.012); Nucleated Red Blood Cells Perc 0.0 % (0.0-0.2); Platelet Count Result 259 k/mm3 (150-375); Red Blood Count 3.87 M/mm3 (4.2-5.4); White Blood Count 5.9 K/mm3 (4.5-10.0)
[2025-05-30 16:53] LABS: Alanine Aminotransferase 12 U/L (6-35); Albumin Level 4.0 g/dL (3.5-5.1); Alkaline Phosphatase 61 U/L (38-126); Anion Gap 5 mmol/L (4-12); Aspartate Amino Transferase 20 U/L (14-36); Bilirubin,Total 0.1 mg/dL (0.2-1.3); Blood Urea Nitrogen 14 mg/dL (7-17); Calcium 9.1 mg/dL (8.4-10.2); Carbon Dioxide 22 mmol/L (22-30); Chloride 104 mmol/L (98-107); Estimated CRCL calculation 157 ml/min; Estimated Glomerular Filt Rate > 60; Glucose 85 mg/dL (65-110); Potassium 3.8 mmol/L (3.4-5.0); Sodium 131 mmol/L (137-145); Total Protein 7.1 g/dL (6.3-8.2)
[2025-05-30 17:00] LABS: Partial Thromboplastin Time 26.3 Seconds (22.3-36.8)
[2025-05-30 17:07] VITALS: BP 118/78; PULSE 78; RESP 14; O2SAT 100
--- OUTSIDE RECORDS SUMMARY | 2025-05-30 17:21 | XMS_ITS | Clinical Summary ---
Author Organization [facility] Address [address] [place] [address] Care Team Providers Care Senior Electronics Design Engineer Name Role Phone Unknown, Notinfile Primary Care [...] D Deficiency Take 1 tablet by mouth production line solderer before breakfast Active metroNIDAZOLE (METROGEL) 0.75 % (37.5mg/5 gram) vaginal gelIndications:Ba cterial Vaginosis Insert 1 Applicatorful into the vagina daily as needed (when pH balance is off) Active UNABLE TO FINDIndications:S upplement Take 1 each by mouth production line solderer before breakfast Med Name: Dianelys Edwards Active UNABLE TO FINDIndications:S upplement Take 1 each by mouth production line solderer before breakfast Med Name: Soursup Active milk thistle 500 mg capsuleIndication s:Supplement Take 1 capsule by mouth production line solderer before breakfast Active turmeric root extract 500 mg capsuleIndication s:Supplement Take 1 capsule by mouth production line solderer before breakfast Active UNABLE TO FINDIndications:S upplement Take 1 each by mouth production line solderer before breakfast Med Name: Black Seed Oil Active UNABLE TO FINDIndications:S upplement Take 1 each by mouth daily before breakfast Med Name: Dandelion Root Active UNABLE TO FINDIndications:S upplement Take 1 each by mouth production line solderer before breakfast Med Name: Artichoke [place] Active senna-docusate (PERICOLACE) 8.6-50 mg Take 1 [...] different from the original. 29 y.o. with [id number] grade 3 immature teratoma s/p 3C BEP [...] of contraception [] Method of feeding [] Clod Puller [] Car seat discussed [] PP Depression [...] Description 05/19/2025 Documentation Obstetrics and Gynecology Clinic [address] [place] [address] 3rd Floor [address] [place] [phone] Amber Baker RN 05/18/2025 3:50 PM CDT - 05/18/2025 11:59 PM CDT Hospital Encounter [address] [address] with uncertain viability, single or unspecified fetus Discharge Disposition: Discharge to home or self care 05/18/2025 1:00 PM CDT Office Visit [facility] [address] [place] [address] Teratoma of ovary, unspecified laterality (Primary Dx); [...] Tobacco: Never Tobacco Cessation:Counseling Given: Not Answered [facility] Utilities Answer Date Recorded In the [...] week 02/08/2025 How often do you attend [facility] or mandaeism services? More than 4 times per year 02/08/2025 Do you belong to any clubs o r organizations such as hinduism groups, unions, fraternal or athletic groups, or [...] any time in the past 12 m [facility], were you homeless or living in a care home (including now)? No 02/08/2025 Personal Safety Answer Date Recorded Have you ever been in or are you currently in a harmful physical or emotional relationship or is someone making you feel afraid or unsafe? 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 trachomatis Not Detected [facility] N. gonorrhoeae Not Detected [facility] Comment: Interpretive Data This assay detects Chlamydia trachomatis and Neisseria gonorrhoeae by nucleic acid amplification testing (NAAT). This assay has been cleared by the [place] Food and Drug administration. The performance characteristics of this test have been verified by the [facility] Molecular Infectious Disease laboratory. The performance characteristics of this test have not been evaluated in individuals less than 14 years of age. Current Interpretive Data was last revised on 2023. Vaginal (None) 05/18/2025 4: 29 PM CDT 05/18/2025 6:08 PM CDT Birgit Almanzar MD LAB MICROBIOLOGY - GENERA L ORDERABLES Final Result Performing Organization Address [facility] [[email or web address]] Co de Phone Number [facility] [place] [address] [facility] * Trichomonas vaginalis PCR Vaginal (05/18/2025 4:29 PM CDT) Trichomonas DNA Not Detected [facility] Comment: Interpretive Data This assay detects Trichomonas vaginalis by nucleic acid amplification testing (NAAT). This assay has been cleared by the [place] Food and Drug administration. The performance characteristics of this test have been verified by the [facility] Molecular Infectious Disease laboratory. The performance of this test has not been evaluated in individuals less than 18 years of age. Current Interpretive Data was last revised on 2023. Vaginal 05/18/2025 4:29 PM CDT 05/18/2025 6:08 PM CDT us Birgit Almanzar MD LAB MICROBIOLOGY - GENERA L ORDERABLES Final Result Performing Organization Address City/[facility] [[email or web address]] [place] [address] [facility] * (ABNORMAL) POCT hCG, urine (05/18/2025 2:35 PM CDT) HCG, ur, POC Positive(A) Negative Lot Number [id number] QC Backgroud Clear Acceptable QC Control Line Acceptable Urine 05/18/2025 2:35 PM CDT Birgit Almanzar MD POINT OF CARE TEST ORDERA BLES Final Result from Last 3 Months Insurance Advance Directives For more information, please contact: [phone] * Full Code (Latest Code Status on [...] 4:59 PM 07/20/2024 9:21 PM Care Teams Senior Electronics Design Engineer Relationship Specialty Start Date End Date Unknown, Notinfile PCP - General 12/23/24
--- OUTSIDE RECORDS SUMMARY | 2025-05-30 17:21 | XMS_ITS | Encounter Summary ---
Author Organization [facility] Healthcare Address [address] [place] [address] Care Team Providers Care Production Line Operator Name Role Phone Unknown, Notinfile Primary Care Provider Unavail able Unknown, Notinfile Primary Care Provider Unavail able Encounter Details Date Type Department Care Team (Late st Contact Info) Description 08/12/2024 Telephone [facility] Radiology [address] [place] [address] Rain Vallecillo RN Social History Tobacco Use [...] on file Legal Sex Female 7:45 PM BUSINESS SERVICES SALES AGENT Gender Identity Not on file Sexual Orientation Not on file documented as of this encounter Functional Status * AUDIT-C Score Answer Date of Assessment Author 2 08/13/2024 12:27 PM BUSINESS SERVICES SALES AGENT Le, Lill charity, RN * Question Answer [...] COVID: Suspected 09/11/2024 09/11/2024 09/11/2024 1:27 AM BUSINESS SERVICES SALES AGENT COVID19 09/11/2024 09/11/2024 09/23/2024 3:05 AM BUSINESS SERVICES SALES AGENT COVID: Recovered Comment:Added based on recent COVID infection. 09/23/2024 09/23/2024 12/22/2024 7:26 PM C DT COVID: Suspected 10/21/2024 10/21/2024 10/21/2024 2:44 PM CDT COVID: Suspected 12/23/2024 12/23/2024 12/23/2024 8:00 PM CDT Rhino/Enterovirus 12/23/2024 12/23/2024 12/30/2024 7:26 PM CDT documented as of this encounter Care Teams Production Line Operator Relationship Specialty Start Date End Date Unknown, Notinfile PCP - General 07/16/24 12/22/24 Unknown, Notinfile PCP - General 12/23/24 documented as of this encounter
--- OUTSIDE RECORDS SUMMARY | 2025-05-30 17:21 | XMS_ITS ---
Author Organization [facility] Address [address] [place] [address] Care Team Providers Care Distribution Superintendent Name Role Phone Unknown, Notinfile Primary Care Provider Unavail able Active Problems Patient Care Coordination No te Formatting of this note migh t be different from the original. 29 y.o. with [id number] grade 3 immature teratoma s/p 3C BEP [...] screening: to discuss [] [facility] referral: {Blank single:96117::Not indicated} [] ASA at 12 weeks: ordered [...] of contraception [] Method of feeding [] Railroad Car [employer]er [] Car seat discussed [] PP Depression [...]
[2025-05-30 17:34] LABS: Beta HCG Quantitative 76898.00 mIU/ML
== END 2025-05-30 17:37 | disposition home or self-care (01) ==
PROVIDERS: Emergency Provider Nurse Practitioner Adult Health; PCP Internal Medicine Infectious Disease
DX: O20.9 Hemorrhage in early pregnancy, unspecified (principal); Z3A.08 8 weeks gestation of pregnancy; Z85.41 Personal history of malignant neoplasm of cervix uteri
CPT/HCPCS: 36415; 76801; 76817; 80053; 81001; 84702; 85025; 85730; 86900; 86901; 99284